=== PATIENT | male | born 1960 | race Hispanic/Latino ===

== ENCOUNTER 2025-07-08 06:40 | Day surgery (SDC) | payer OTHER ==
[2025-07-05 14:18] LABS: IMMATURE GRANULOCYTE ABSOLUTE 0.01 K/uL (0-1); NUCLEATED RED BLOOD CELLS 0.0 % (0.0-0.19); PLATELET COUNT (AUTO) 212 K/uL (130-400); RED BLOOD CELL COUNT(AUTO) 3.44 MIL/uL (4.50-6.20); RED CELL DISTRIBUTION WIDTH 12.6 % (11.0-15.5); WHITE BLOOD COUNT (AUTO) 6.6 K/uL (4.8-10.8)
[2025-07-05 14:28] VITALS: BP 112/55; PULSE 62; RESP 16; TEMP 98.2
[2025-07-05 14:32] LABS: CREATININE 1.4 mg/dL (0.5-1.3); GLOMERULAR FILTR. RATE CALC 56.0 mL/min (>90); GLUCOSE,RANDOM 125.0 mg/dL (70-105); SODIUM SERUM 140.0 mmol/L (136-145); UREA NITROGEN, BLOOD 30.0 mg/dL (7-18)
--- NOTE | 2025-07-05 15:19 | EKG ---
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
[2025-07-08] VITALS (14 sets, daily range): BP systolic 94–116; BP diastolic 47–60; PULSE 45–58; RESP 16–17; TEMP 96.9–97.6
[~2025-07-08] VITALS: Ht 167.6 cm; Wt 75.7 kg
[~2025-07-08 06:40] MED LIST: AMLO-258 PO; ASPI-1443 PO; ATOR10 PO; HYDR25TA PO; LISI40TA15 PO; SITA1TAB2 PO; TAMS-55 PO
[2025-07-08] MEDS ORDERED: LIDOCAINE 1%-EPI 1:100,000 20 ML VIAL ONE (07:39)
[2025-07-08] MEDS: 0.9%NACL 1000ML 1,000 ML IV ONE (07:47)
[2025-07-08] MEDS ORDERED: PROMETHAZINE HCL 25 MG/ML 1ML AMPULE IM PRN (08:00)
[2025-07-08] MEDS ORDERED: LIDOCAINE PF 100MG/5ML (2%) SYRINGE 5ML ONE (08:06)
[2025-07-08] MEDS ORDERED: SUCCINYLCHOLINE CHLORIDE 20 MG/ML 10 ML VIAL ONE (08:06)
[2025-07-08] MEDS ORDERED: GLYCOPYRROLATE 0.2 MG/ML 5 ML VIAL ONE (08:06)
[2025-07-08] MEDS ORDERED: NEOSTIGMINE METHYLSULFATE 1MG/ML IV ONE (08:07)
--- NOTE | 2025-07-08 08:54 | OP ---
Operative Note: DATE OF PROCEDURE: 07/08/25 SURGEON: LENNY POWERS MD TALENT MANAGER: [] ANESTHESIA: [] General ANESTHESIOLOGIST/FURNACE HELPER: [] PREOPERATIVE DIAGNOSIS: [] Sebaceous cyst in the back POSTOPERATIVE DIAGNOSIS: [] The same SYNOPSIS: [] PROCEDURE: [] Excision sebaceous cyst ESTIMATED BLOOD LOSS: [] Minimal INDICATIONS: [] DESCRIPTION OF PROCEDURE: [] With the patient under general anesthesia I did a transverse incision in a sebaceous cyst in the back. This was about5 cm. Using cauterization was able to excise completely the sebaceous cyst with the amaro. I then provide adequate hemostasis and irrigation. I closed in the skin using 3-0 Vicryl s Rosie is a miscellaneous tissue and then 3-0 nylon to close the skin. 20 cc of local anesthesia were placed. Patient tolerated the procedure without any complications LENNY POWERS MD Jul 08, 2025 08:54
--- NOTE | 2025-07-08 09:39 | NUR ---
DRESSING: DRESSING TO UPPER BACK DRY/INTACT WITH NO REDNESS/SWELLING NOTED TO SURROUNDING AREA.
--- NOTE | 2025-07-08 10:05 | NUR ---
DRESSING: DRESSING TO UPPER BACK REMAINED DRY/INTACT WITH NO REDNESS/SWELLING NOTED TO SURROUNDING AREA.
== END 2025-07-08 10:05 | disposition home or self-care (01) ==
LOC: DAH 06:40
PROVIDERS: ATTEND Surgery
DX: L72.3 Sebaceous cyst (principal); L72.0 Epidermal cyst; I10 Essential (primary) hypertension; E11.9 Type 2 diabetes mellitus without complications; E78.5 Hyperlipidemia, unspecified; E66.9 Obesity, unspecified; Z68.26 Body mass index [BMI] 26.0-26.9, adult; Z90.89 Acquired absence of other organs; Z79.899 Other long term (current) drug therapy
CPT/HCPCS: 80048; 85025; 36415; 93005; 11406; 82948 ×2; 88304; A4223 ×2; A4600; A6260; A4663; J7030 ×2; J3010; J1100; J0330; J0665; J3490 ×2; J2003; J2704 ×2; J2405; J2710; J2371; J0690; A4930; A4215; A4213; A6251; A4222; A4221; A4216; A4450